=== PATIENT | female | born 1965 | race Caucasian/White ===

== ENCOUNTER 2017-06-07 08:07 | Emergency (ER) | payer MEDICARE, MEDICAID ==
[2013-10-03 15:29] VITALS: Wt 90.7 kg
[~2017-06-07 08:07] MED LIST: ACE325 PO; ALB0.5 INH; ALB18R INH; ALBU8.5H IH; ALBU8.5H12 IH; ARIP15TA9 PO; ARIP5TAB28 PO; AZIT-1 PO; AZIT1PAC21 PO; BEN100 PO; BUDE10.2; BUP75 PO; CEFU500T10; CEFU500T50 PO; CEPH500C24 PO; CIT20 PO; CLO1 PO; CLO5 PO; CLO75 PO; CLON-303 *; CLON-303 PO; COUGH SYRUP; DIC10 PO; DIHY1SPR3; DIHY1SPR3 NS; DIP25 PO; DIPH-464 PO; DIVA500T98 PO; DULO60CA51 PO; ELAVIL PO; ENA5 PO; ENO100I SC; ENO100I SUBQ; FENT-23 TD; FLUO60TA PO; FOL1 PO; FURO20TA19 PO; GABA-492 PO; HYDR2TAB42 PO; HYDR473S4 PO; KET10 PO; LEVO25TA57 PO; LEVO50TA80 PO; MED10 PO; MEP50 PO; METH4TAB66 PO; METO-734 PO; MIR15 PO; MIRT-25; MIRT45TA97 PO; MYLL PO; NEB5 PO; NOR5/325 PO; OMEP-153 PO; OMEP-218 PO; OND4 PO; ONDA4TAB PO; OXYC-489 PO; OXYC10TA67 PO; OXYC15TA79 PO; OXYC5SOL14 PO; OXYGEN INH; PERIACTIN; PRE20 PO; PRED-1 PO; PRED-314 PO; PRO25 PO; PROM-110 PO; PROM12.514 RC; RIVA20TA PO; SUMA6PEN7 SQ; TOPI-120 PO; TRA50 PO; TRAM-420 PO; TRAZ-156 PO; TRAZ50 PO; VENL75CA58 PO; VILA40TA PO; VIT-22 PO; WAR5 PO; WARF10TA29 PO; [UNRECOGNIZED DRUG - CODE] PO; gabapentin; migraine med
[2017-06-07] MEDS ORDERED: CLON-1 PO (08:18)
[2017-06-07] MEDS ORDERED: VORT10TA PO (08:28)
[2017-06-07] MEDS ORDERED: NS(*) 0.9% 1000 ML BAG 1,000 ML IV ONE ×2 (08:31)
[2017-06-07] MEDS ORDERED: ONDANSETRON 4 MG/2 ML VIAL IVP ONE ×2 (08:35→09:45)
--- NOTE | 2017-06-07 08:36 | ER Report ---
History and Physical Time Seen By MD: 08:20 Hx. of Stated Complaint: REPORTS THAT SHE HAS HAD A MIGRAINE FOR THE LAST WEEK AND THE NAUSEA/VOMITING ARE MAKING HER UNABLE TO KEEP MEDICATIONS DOWN. HPI/ROS CHIEF COMPLAINT: Abdominal pain nausea vomiting chronic headache HISTORY OF PRESENT ILLNESS: Patient is a 51-year-old female currently on an ED care plan for frequency of visits and narcotic use and abuse comes to the emergency department today with a complaint of a headache which is chronic for her she says she gets these once a month is unchanged from her baseline at the worse headache of her life and also with persistent nausea and vomiting which is Last for 5 days. Patient states she normally gets IV Phenergan on arrival couple liters of fluid and does much better. Patient states she's been able to hold her medications down. Patient states that her migraines are unchanged from her baseline patient has no additional complaints to presentation. Patient denies any abdominal pain at this time says that she's not urinating enough frequently and that she is unable to hold down even fluids. REVIEW OF SYSTEMS: Respiratory: No cough, no dyspnea. Cardiovascular: No chest pain, no palpitations. Gastrointestinal: Vomiting no abdominal pain Musculoskeletal: No back pain. Remainder of the 14 system rev: Yes Allergies: Coded Allergies: amitriptyline (Unverified Allergy, Severe, 06/07/17) pregabalin (Verified Allergy, Severe, "STROKE", 06/07/17) duloxetine (Unverified Allergy, Intermediate, 06/07/17) acetaminophen (Verified Allergy, Mild, 06/07/17) ibuprofen (Verified Allergy, Mild, 06/07/17) Uncoded Allergies: OTC MEDS (Allergy, Mild, 05/18/11) OVER THE COUNTER PAIN MEDS (Allergy, Mild, 07/06/10) Home Meds Active Scripts Tramadol Hcl (TRAMADOL HCL) 50 Mg Tablet, 50 MG PO Q6H Y for PAIN, #12 TAB 0 Refills Prov:CONNOR LU MD 11/03/16 Rivaroxaban 20 Mg (XARELTO 20 MG) 20 Mg Tablet, 20 MG PO HS, #90 TAB 2 Refills Prov:PETER PEREZ [employer], ONC 09/28/16 Promethazine Hcl (PROMETHAZINE HCL) 25 Mg Tablet, 25 MG PO Q8H Y for NAUSEA/ VOMITING, #20 TAB 0 Refills Prov:CONNOR LU MD 06/21/15 Reported Medications Vortioxetine Hydrobromide (Brintellix) 10 Mg Tablet, PO DAILY 06/07/17 Clonazepam (KLONOPIN) 1 Mg Tablet, 1 MG PO PRN, #7 TAB 06/07/17 Aripiprazole (ABILIFY) 15 Mg Tablet, 15 MG PO DAILY, #30 05/07/14 Levothyroxine Sodium (SYNTHROID) 25 Mcg Tablet, 125 MCG PO QDAY 01/13/13 Discontinued Reported Medications Albuterol Sulfate 90 Mcg/Act (PROAIR HFA 90 MCG/ACT) 8.5 Gm Hfa.aer.ad, 1-2 PUFF IH 3-4XD, INHALER 11/03/16 Clonazepam (CLONAZEPAM) 1 Mg Tablet, 3 MG PO QID, #6 TAB 11/01/14 [gabapentin] No Conflict Check 11/01/14 Oxycodone Hcl 10 Mg Tab (OXYCODONE HCL 10 MG TAB) 10 Mg Tablet, 10 MG PO QID, # 15 0 Refills 10/04/13 Fluoxetine Hcl (FLUOXETINE HCL) 60 Mg Tablet, 80 MG PO DAILY 11/09/12 Discontinued Scripts Azithromycin (ZITHROMAX) 250 Mg Tablet, 0 PO QDAY, #6 TAB 0 Refills Take 2 tablets today, then 1 tablet daily for 4 more days. Prov:CONNOR LU MD 11/03/16 Methylprednisolone (METHYLPREDNISOLONE) 4 Mg Tab.ds.pk, 4 MG PO DIRECTED, #1 PACK 0 Refills Prov:CONNOR LU MD 11/03/16 Ketorolac Tromethamine (KETOROLAC TROMETHAMINE) 10 Mg Tab, 10 MG PO Q6H Y for PAIN, #12 TAB 0 Refills Prov:CONNOR LU MD 06/21/15 Promethazine Hcl (PROMETHAZINE HCL) 25 Mg Tablet, 25 MG PO Q4H Y for NAUSEA/ VOMITING, #14 TAB Prov:RUDY DUNCAN DO 11/04/14 Furosemide (LASIX) 20 Mg Tablet, 1 TAB PO DAILY for reduction of leg edema, #30 TAB Prov:RUDY DUNCAN DO 11/01/14 Prednisone 10 Mg Tab (PREDNISONE 10 MG TAB) 10 Mg Tablet, 10 MG PO QDAY Y for reduction of lung inflammation, #9 2 tabs daily for 3 days 1 tab daily for 3 days Prov:RUDY DUNCAN DO 11/01/14 Cephalexin Monohydrate (CEPHALEXIN) 500 Mg Cap, 500 MG PO TID for infection, # 30 CAP TAKE 1 CAPSULE BY MOUTH EVERY SIX HOURS Prov:RUDY DUNCAN DO 11/01/14 Ketorolac Tromethamine (KETOROLAC TROMETHAMINE) 10 Mg Tab, 10 MG PO Q6H Y for PAIN, #12 TAB 0 Refills Prov:CONNOR LU MD 06/13/14 Reviewed Nurses Notes: Yes Old Medical Records Reviewed: Yes Hx Smoking: No Smoking Status: Never Smoker, Former Smoker Exposure to Second Hand Smoke?: No Hx Substance Use Disorder: No Hx Alcohol Use: No Constitutional Vital Sign - Last 24 Hours 06/07/17 06/07/17 06/07/17 06/07/17 08:15 08:30 08:47 09:00 Temp 98.9 Pulse 75 69 65 Resp 18 B/P (MAP) 139/90 124/76 (92) 118/66 (83) Pulse Ox 91 88 96 O2 Delivery Room Air O2 Flow Rate 2.0 06/07/17 09:30 Pulse 62 B/P (MAP) 116/68 (84) Pulse Ox 99 Physical Exam General Appearance: [The patient is alert, has no immediate need for airway protection and no current signs of toxicity.] [ ] Eyes: Pupils equal and round no injection. Respiratory: Chest is non tender, lungs are clear to auscultation. Cardiac: regular rate and rhythm [ ] Gastrointestinal: Abdomen is soft and non tender, no masses, bowel sounds normal. Musculoskeletal: Neck: Neck is supple and non tender. Extremities have full range of motion and are non tender. Skin: No rashes or lesions. [ ] DIFFERENTIAL DIAGNOSIS: After history and physical exam differential diagnosis was considered for vomiting chronic cyclical vomiting dehydration chronic migraine Medical Decision Making Data Points Result Diagram: 06/07/17 0835 06/07/17 0835 Laboratory Hematology Test 06/07/17 08:13 06/07/17 08:35 Urine Color Straw Urine Clarity Clear Urine pH 5.0 pH (4.8-9.5) Urine Specific [place] 1.004 Urine Protein Negative mg/dL (NEGATIVE) Urine Glucose (UA) Negative mg/dL (NEGATIVE) Urine Ketones Negative mg/dL (NEGATIVE) Urine Blood Negative (NEGATIVE) Urine Nitrite Negative (NEGATIVE) Urine Bilirubin Negative (NEGATIVE) Urine Urobilinogen Negative mg/dL (0.2-1.9) Urine Leukocyte Esterase Negative (NEGATIVE) Urine RBC <1 /HPF (0-2/HPF) Urine WBC 1 /HPF (0-5/HPF) Urine Squamous Epithelial Cells Many /LPF (</=FEW) Urine Bacteria Negative /HPF (NONE-FEW) Urine Mucus None /HPF (NONE-FEW) Red Blood Count 5.19 M/uL (4.17-5.56) Mean Corpuscular Volume 85.1 fL (80.0-96.0) Mean Corpuscular Hemoglobin 29.1 pg (26.0-33.0) Mean Corpuscular Hemoglobin Concent 34.2 g/dL (32.0-36.0) Red Cell Distribution Width 14.2 % (11.5-14.5) Mean Platelet Volume 9.2 fL (7.2-11.1) Neutrophils (%) (Auto) 69.7 % (39.4-72.5) Lymphocytes (%) (Auto) 22.7 % (17.6-49.6) Monocytes (%) (Auto) 6.3 % (4.1-12.4) Eosinophils (%) (Auto) 0.8 % (0.4-6.7) Basophils (%) (Auto) 0.5 % (0.3-1.4) Nucleated RBC Relative Count (auto) 0.0 /100WBC Neutrophils # (Auto) 4.1 K/uL (2.0-7.4) Lymphocytes # (Auto) 1.3 K/uL (1.3-3.6) Monocytes # (Auto) 0.4 K/uL (0.3-1.0) Eosinophils # (Auto) 0.0 K/uL (0.0-0.5) Basophils # (Auto) 0.0 K/uL (0.0-0.1) Nucleated RBC Absolute Count (auto) 0.00 K/uL Sodium Level 146 mmol/L (137-145) Potassium Level 3.5 mmol/L (3.5-5.0) Chloride Level 105 mmol/L (98-107) Carbon Dioxide Level 26 mmol/L (22-31) Blood Urea Nitrogen 10 mg/dl (7-18) Creatinine 1.10 mg/dl (0.52-1.04) Glomerular Filtration Rate Calc 52.6 Random Glucose 110 mg/dl (75-110) Calcium Level 9.6 mg/dl (8.4-10.2) Total Bilirubin 0.6 mg/dl (0.2-1.3) Aspartate Amino Transf (AST/SGOT) 18 U/L (0-35) Alanine Aminotransferase (ALT/SGPT) 23 U/L (0-56) Alkaline Phosphatase 67 U/L (0-126) Total Protein 7.2 gm/dl (6.3-8.2) Albumin 4.3 g/dl (3.5-5.0) Lipase 152 U/L (23-300) Chemistry Test 06/07/17 08:13 06/07/17 08:35 Urine Color Straw Urine Clarity Clear Urine pH 5.0 pH (4.8-9.5) Urine Specific [place] 1.004 Urine Protein Negative mg/dL (NEGATIVE) Urine Glucose (UA) Negative mg/dL (NEGATIVE) Urine Ketones Negative mg/dL (NEGATIVE) Urine Blood Negative (NEGATIVE) Urine Nitrite Negative (NEGATIVE) Urine Bilirubin Negative (NEGATIVE) Urine Urobilinogen Negative mg/dL (0.2-1.9) Urine Leukocyte Esterase Negative (NEGATIVE) Urine RBC <1 /HPF (0-2/HPF) Urine WBC 1 /HPF (0-5/HPF) Urine Squamous Epithelial Cells Many /LPF (</=FEW) Urine Bacteria Negative /HPF (NONE-FEW) Urine Mucus None /HPF (NONE-FEW) White Blood Count 5.9 k/uL (4.5-11.0) Red Blood Count 5.19 M/uL (4.17-5.56) Hemoglobin 15.1 g/dL (12.0-16.0) Hematocrit 44.2 % (34.0-47.0) Mean Corpuscular Volume 85.1 fL (80.0-96.0) Mean Corpuscular Hemoglobin 29.1 pg (26.0-33.0) Mean Corpuscular Hemoglobin Concent 34.2 g/dL (32.0-36.0) Red Cell Distribution Width 14.2 % (11.5-14.5) Platelet Count 160 K/uL (150-450) Mean Platelet Volume 9.2 fL (7.2-11.1) Neutrophils (%) (Auto) 69.7 % (39.4-72.5) Lymphocytes (%) (Auto) 22.7 % (17.6-49.6) Monocytes (%) (Auto) 6.3 % (4.1-12.4) Eosinophils (%) (Auto) 0.8 % (0.4-6.7) Basophils (%) (Auto) 0.5 % (0.3-1.4) Nucleated RBC Relative Count (auto) 0.0 /100WBC Neutrophils # (Auto) 4.1 K/uL (2.0-7.4) Lymphocytes # (Auto) 1.3 K/uL (1.3-3.6) Monocytes # (Auto) 0.4 K/uL (0.3-1.0) Eosinophils # (Auto) 0.0 K/uL (0.0-0.5) Basophils # (Auto) 0.0 K/uL (0.0-0.1) Nucleated RBC Absolute Count (auto) 0.00 K/uL Glomerular Filtration Rate Calc 52.6 Calcium Level 9.6 mg/dl (8.4-10.2) Total Bilirubin 0.6 mg/dl (0.2-1.3) Aspartate Amino Transf (AST/SGOT) 18 U/L (0-35) Alanine Aminotransferase (ALT/SGPT) 23 U/L (0-56) Alkaline Phosphatase 67 U/L (0-126) Total Protein 7.2 gm/dl (6.3-8.2) Albumin 4.3 g/dl (3.5-5.0) Lipase 152 U/L (23-300) Urinalysis Test 06/07/17 08:13 Urine Color Straw Urine Clarity Clear Urine pH 5.0 pH (4.8-9.5) Urine Specific [place] 1.004 Urine Protein Negative mg/dL (NEGATIVE) Urine Glucose (UA) Negative mg/dL (NEGATIVE) Urine Ketones Negative mg/dL (NEGATIVE) Urine Blood Negative (NEGATIVE) Urine Nitrite Negative (NEGATIVE) Urine Bilirubin Negative (NEGATIVE) Urine Urobilinogen Negative mg/dL (0.2-1.9) Urine Leukocyte Esterase Negative (NEGATIVE) Urine RBC <1 /HPF (0-2/HPF) Urine WBC 1 /HPF (0-5/HPF) Urine Squamous Epithelial Cells Many /LPF (</=FEW) Urine Bacteria Negative /HPF (NONE-FEW) Urine Mucus None /HPF (NONE-FEW) ED Course/Re-evaluation ED Course ED clinical course 51-year-old female on a care plan comes here with a headache but abdominal discomfort labs are normal waiting for TSH at 2 L of fluid had 1 episode of emesis an hour prior to discharge I will advise her to follow-up with primary care Decision to Disposition Date: Jun 07, 2017 Decision to Disposition Time: 09:46 Depart Departure Latest Vital Signs Vital Signs Date Time Temp Pulse Resp B/P (MAP) Pulse Ox O2 Delivery O2 Flow Rate FiO2 06/07/17 09:30 62 116/68 (84) 99 06/07/17 08:47 2.0 06/07/17 08:15 98.9 18 Room Air Impression: Primary Impression: Nausea and vomiting in adult Condition: Improved Disposition: HOME OR SELF-CARE Referrals: KATIE REYES MD (PCP) 5 Days Patient Instructions: Acute Nausea and Vomiting (DC) KEVIN TAI MD Jun 07, 2017 08:36
[2017-06-07 08:49] LABS: PLATELET COUNT, AUTOMATED 160 K/uL (150-450)
[2017-06-07 09:30] VITALS: BP 116/68
== END 2017-06-07 09:53 | disposition home or self-care (01) ==
LOC: ER 08:08
DX: R11.2 Nausea with vomiting, unspecified (principal)
CPT/HCPCS: 81001; 83690; 84443; 85025; 96361; 96374; 99284; J2405; J7030; 82040; 82247; 82310; 82374; 82435; 82565; 82947; 84075; 84132; 84155; 84295; 84450; 84460; 84520

== ENCOUNTER 2017-07-12 10:25 | Outpatient (RCR) | payer MEDICARE, MEDICAID ==
[2013-10-03 15:29] VITALS: Wt 90.1 kg
[~2017-07-12 10:25] MED LIST changes: +CLON-1 PO; +LIDOCAINE INJ ONE; +PROPOFOL EMUL(*) 10MG/ML 20 ML 20 ML ONE; +VORT10TA PO
[2017-07-12 10:32] VITALS: BP 119/80
--- NOTE | 2017-07-12 17:44 | ONCOLOGY FOLLOW UP NOTE ---
EVENT DATE: July 12, 2017 DIAGNOSES 1. Antiphospholipid antibody syndrome. 2. Stroke at age of 43. 3. Positive antinuclear antibody in a patient with positive family history of systemic lupus. 4. 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 5. Peripheral neuropathy 6. Patent foramen ovale, status post surgical correction in December,. CHIEF COMPLAINT The patient is here today for follow up of her hypercoagulable state. HEMATOLOGY HISTORY The patient is a 52-year-old woman who had been diagnosed with a stroke in September, when she was in [place]. She was maintained on Coumadin since then with severe fluctuation of Coumadin therapeutic effect. The patient has been diagnosed at that time with patent foramen ovale and has had surgical correction in December,. The patient had thrombophilia workup done at the time in [place] and she was found to have positive phosphatidylserine antibodies IgM which was high at 54 and methylmalonic acid and succinic acid was normal. Anticardiolipin antibody was negative. Methylenetetrahydrofolate reductase mutation showed homozygous state for [id number] mutation. Factor V Leiden was negative. Prothrombin gene mutation was also negative. Antinuclear antibodies by IgG by YAEL was detected but antibody titer IgG was less than 1 to 40, within normal range. Anticardiolipin IgG was 12, while anticardiolipin IgM was high at 38. Anticardiolipin IgA was normal at 4. Lupus anticoagulant was negative. [id number] DNA and anti-Palmer antibodies came back negative. The patient currently is maintained on Xarelto 20 mg daily and since her diagnosis she did not have any further blood clotting. HISTORY OF PRESENT ILLNESS Patient is here today for followup of her hypercoagulable state. She is complaining of dry cough with shortness of breath and wheezing sometimes. Patient did not show for the last three years and she did not have any blood clotting during this period of time. PAST MEDICAL HISTORY 1. Cerebrovascular accident in 2008. 2. 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 3. Antiphospholipid antibody syndrome. 4. Peripheral neuropathy. 5. Depression. 6. Patent foramen ovale status post surgical correction, December,. 7. Hypertension. PAST SURGICAL HISTORY 1. Total hysterectomy on June 13, 2011. 2. Left oophorectomy, taken out for two masses on October 28, 2010. 3. December,, patient had surgery for patent foramen ovale. SOCIAL HISTORY The patient is single. She has one daughter. She is on disability. She denies any abuse of tobacco, alcohol or drugs. FAMILY HISTORY Her mother had lupus with renal failure. She was on dialysis. She has a paternal grandfather who had diabetes and heart disease. Maternal grandmother had a stroke. Maternal aunt had a heart attack. Brother had renal disease and daughter has renal disease. CURRENT MEDICATIONS 1. Depakote 500 mg daily. 2. Trazodone 50 mg daily. 3. Fluoxetine 60 mg daily. 4. Oxycodone p.r.n. for pain. 5. Levothyroxine 100 mcg daily. 6. Clonazepam 1 mg three times daily. 7. Oxygen at night 2.5 liter per minute. 8. Xarelto 20 mg daily. 9. Fentanyl 50 mcg every 72 hours. ALLERGIES ALL PAIN MEDICATIONS, [id number]-[id number] TYLENOL, IBUPROFEN AND ADVIL WHICH CAUSE LIVER AND KIDNEY FAILURE. REVIEW OF SYSTEMS CONSTITUTIONAL: The patient has some chills and sweating. HEENT: Ears: No tinnitus or hearing problem. Nose: She has nasal discharge. Throat: No sore throat or mouth ulcers. Eyes: No diplopia or visual changes. RESPIRATORY: Patient has dry cough with shortness of breath and wheezing. CARDIOVASCULAR: No chest pain, orthopnea, or paroxysmal nocturnal dyspnea (PND) . No edema. No palpitations. GASTROINTESTINAL: No nausea or vomiting. No diarrhea or constipation. No change in bowel movements. No heartburn or swallowing difficulties. No abdominal pain. No jaundice. No hematemesis, melena or rectal bleeding. GENITOURINARY: No hematuria or dysuria. MUSCULOSKELETAL: She is achy all over. NEUROLOGICAL: She has tingling and numbness from her peripheral neuropathy. She also has migraine headache. HEMATOLOGIC/LYMPHATIC: She has easy bruising and mucosal bleeding sometimes from the mouth on brushing her teeth. She is weak, tired and fatigued. SKIN: No skin rash or lumps. PSYCHIATRIC: No anxiety or depression PHYSICAL EXAMINATION GENERAL: Looks stable. Well-developed, well-nourished, and in no acute distress. VITAL SIGNS: Blood pressure 119/80, pulse 81 per minute, respirations 16 per minute, temperature 98.2, pulse ox 91% on room air. HEENT: Head: Atraumatic. No sinus tenderness to palpation. Eyes: No icterus or conjunctivitis. Mouth and throat: No oral thrush or mucositis. NECK: Supple. No cervical or supraclavicular lymphadenopathy. LUNGS: Clear to auscultation and percussion bilaterally. HEART: Regular rate and rhythm. No gallops, murmurs, clicks or rubs. ABDOMEN: Soft and lax. No tenderness. No hepatosplenomegaly. No masses. EXTREMITIES: No cyanosis, clubbing or edema. LYMPHATICS: No peripheral lymphadenopathy. NEUROLOGICAL: Conscious, alert and oriented times three. No focal motor or sensory deficits. PSYCHIATRIC: Mood and affect appear normal. SKIN: No skin rash, bruise or purpuric eruption. DIAGNOSTIC DATA CBC showed white count 5.9, hemoglobin 15.1, hematocrit 44.2, platelets 160, 000. Chem panel totally normal except sodium 146, creatinine 1.1, other parameters are normal. ASSESSMENT 1. Antiphospholipid antibody syndrome. The patient had positive IgM phosphatidylserine antibody in 2008. Repeat workup for antiphospholipid antibodies syndrome showed high IgM phosphatidylserine antibody at 38. The diagnosis of antiphospholipid antibody syndrome was made after having a persistent antiphospholipid antibody for over three months. She is at high risk of recurrent blood clotting, and as her initial blood clot episode was a stroke, patient is a candidate for lifelong anticoagulation. She is currently maintained on Xarelto 20 mg daily. I am planning to continue Xarelto 20 mg lifelong. Patient is followed also by her primary are, Dr. Layton. I will see her in a year with fasting homocysteine level and, and the patient was advised to report to us with any blood clot in the future. 2. Positive antinuclear antibody, but the titer was less than 1:40. Her anti- double stranded DNA antibodies and anti-smooth antibodies came back negative. 3. 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 Her homocysteine level was normal. Patient is on supplemental vitamin B12, B6 and folic acid lifelong. 4. Peripheral neuropathy. 5. Patent foramen ovale status post surgical correction December,. PLAN 1. Continue followup. 2. Patient to return in one year with fasting homocysteine level. 3. Continue Xarelto 20 mg daily. 4. Continue B12, B6 and folic acid supplements. 5. Patient to contact us for any new concerns or complaints. ZOHREH
== END 2017-07-16 08:35 | disposition home or self-care (01) ==
LOC: ONC 10:25
PROVIDERS: ATTEND Internal Medicine Hematology
DX: D68.61 Antiphospholipid syndrome (principal); Z79.01 Long term (current) use of anticoagulants; E72.12 Methylenetetrahydrofolate reductase deficiency; G62.9 Polyneuropathy, unspecified; Z79.899 Other long term (current) drug therapy; R05 Cough; R06.02 Shortness of breath; R06.2 Wheezing; R53.1 Weakness; R53.83 Other fatigue
CPT/HCPCS: 99212; J2001; J2704

== ENCOUNTER → 2017-11-22 | Outpatient (CLI) | payer MEDICARE, MEDICAID ==
[2013-10-03 15:29] VITALS: BMI 28.7
[~2017-11-22] MED LIST changes: +CLON-304 PO; -LIDOCAINE INJ ONE; -PROPOFOL EMUL(*) 10MG/ML 20 ML 20 ML ONE; -TRAZ-156 PO; +TRAZ50TA34 PO
--- NOTE | 2017-11-23 08:13 | RADIOLOGY IMAGING REPORT ---
FACILITY: [facility] PATIENT NAME: JOHN PAUL SALAMANCA : [id number] MR: [id number] V: [id number] EXAM DATE: [id number] ORDERING PHYSICIAN: KATIE REYES TECHNOLOGIST: Meka Westbrook PROCEDURE:BILATERAL DIGITAL SCREENING MAMMOGRAM WITH CAD ASSISTED INTERPRETATION & 3D TOMOSYNTHESIS COMPARISON:Prior mammograms 11/21/16, 10/07/13, 09/24/13. INDICATIONS:SCREENING IMPLANTS FINDINGS: There are bilateral subpectoral breast implants in place. There is no evidence of implant rupture or leakage. A small amount of fibroglandular tissue is seen anterior to the implants. The parenchymal pattern has remained stable allowing for difference in mammographic technique & patient positioning. There is no evidence of malignant appearing mass, malignant appearing calcifications or other secondary sign of malignancy in either breast. DIAGNOSTIC CATEGORY 2--BENIGN FINDING. RECOMMENDATIONS: ROUTINE MAMMOGRAM AND CLINICAL EVALUATION. IMPRESSION: BIRADS 2: Benign finding. No significant abnormality is seen. Dictated by: Lucia Burciaga M.D. on 11/22/2017 at 15:42 Transcribed by: NATE on 11/22/2017 at 16:05 Approved by: Lucia Burciaga M.D. on 11/23/2017 at 8:12 [facility]
== END ==
LOC: MAMO 01:16
PROVIDERS: ATTEND Family Medicine
DX: Z12.31 Encounter for screening mammogram for malignant neoplasm of breast (principal)
CPT/HCPCS: 77063; 77067

== ENCOUNTER → 2018-04-01 | Outpatient (CLI) | payer MEDICARE, MEDICAID ==
[2013-10-03 15:29] VITALS: BMI 28.7
[~2018-04-01] MED LIST changes: -CLON-304 PO; +CLON-333 PO
--- NOTE | 2018-04-02 14:44 | RADIOLOGY IMAGING REPORT ---
FACILITY: [facility] PATIENT NAME: JOHN PAUL SALAMANCA : [id number] MR: [id number] V: [id number] EXAM DATE: ORDERING PHYSICIAN: MARLEN COVARRUBIAS TECHNOLOGIST: Meka Westbrook PROCEDURE:BILATERAL DIAGNOSTIC DIGITAL MAMMOGRAM WITH CAD ASSISTED INTERPRETATION & 3D TOMOSYNTHESIS COMPARISON:None. INDICATIONS:PALPABLE BREAST LUMPS & SWELLING IN THE 12 O'CLOCK POSITION OF BOTH BREASTS. FINDINGS: There are bilateral subpectal breast implants in place. There is no evidence of implant rupture or leakage. Scattered fibroglandular densities are seen throughout both breasts. The parenchymal pattern has remained stable allowing for difference in mammographic technique & patient positioning. No mammographic or sonographic correlate is identified to account for patient's palpable lumps & swelling in the 12 o'clock position of both breasts. Therefore, clinical follow up recommended. DIAGNOSTIC CATEGORY 2--BENIGN FINDING. RECOMMENDATIONS: ROUTINE MAMMOGRAM AND CLINICAL EVALUATION. CLINICAL EVALUATION. IMPRESSION: BIRADS 2: Benign finding. No significant mammographic or sonographic abnormality is identified in either breast. Therefore, clinical follow up recommended. Dictated by: Lucia Burciaga M.D. on 04/01/2018 at 16:48 Transcribed by: TANNER on 04/02/2018 at 9:27 Approved by: Lucia Burciaga M.D. on 04/02/2018 at 14:43 [facility]
--- NOTE | 2018-04-02 14:44 | RADIOLOGY IMAGING REPORT ---
[place] [facility] [place]IENT NAME: JOHN PAUL SALAMANCA : [id number] MR: [id number] V: [id number] EXAM DATE: ORDERING PHYSICIAN: MARLEN COVARRUBIAS TECHNOLOGIST: Manny Lomax RDMS, GIANNI PROCEDURE:US BILATERAL BREAST COMPARISON:None. INDICATIONS:BREAST LUMPS 12 O'CLOCK POSITION IN BOTH BREASTS FINDINGS: Both breasts were imaged sonographically in the location of patient's area of interest. This included 12 o'clock, 12:30, 1, 2 o'clock positions in the Right breast & 9:30, 10, 10:30, 11, 11:30 & 12 o'clock positions in the Left breast. No sonographic abnormality was identified. Clinical follow up recommended for patient's palpable findings. DIAGNOSTIC CATEGORY 2--BENIGN FINDING. RECOMMENDATIONS: ROUTINE MAMMOGRAM AND CLINICAL EVALUATION. CLINICAL EVALUATION. IMPRESSION: BIRADS 2: Benign finding. No sonographic correlate identified to account for patient's palpable findings in the 12 o'clock positions of both breasts. Dictated by: Lucia Burciaga M.D. on 04/01/2018 at 16:43 Transcribed by: TANNER on 04/02/2018 at 9:40 Approved by: Lucia Burciaga M.D. on 04/02/2018 at 14:43 [facility]
== END ==
LOC: US 01:55
PROVIDERS: ATTEND Nurse Practitioner Family
DX: Z98.82 Breast implant status (principal)
CPT/HCPCS: 77062; 77066

== ENCOUNTER 2018-06-27 14:24 | Outpatient (RCR) | payer MEDICARE, MEDICAID ==
[2013-10-03 15:29] VITALS: Wt 94.1 kg
--- NOTE | 2017-08-02 13:45 | NUR ---
SW assisted pt with applying for xarelto assistance last month. The pt called today and notified SW that she received information back from [employer] that she did not qualify for assistance. She questioned if she could potentially switch to eliquis instead. SW visited with her oncologist about this and he indicated that yes, she could in fact switch to eliquis. SW notified the pt. Pt stated she did not need any at the moment but would appreciate it to be called in to her pharmacy [facility] so she could pick it up when she needed it. THANG notified Dr. Miranda's nurse of this for it to be called in.
--- NOTE | 2017-08-02 14:35 | NUR ---
SW just verified with RN who called in the script for Eliquis that it is more expensive than xarelto (nearly double). SW notified the pt of this information and the pt is going to call the pharmacy and tell them that she does not need the eliquis at this time.
[2018-06-20 08:59] VITALS: BP 113/84
[~2018-06-27 14:24] MED LIST changes: -TRAZ50TA34 PO; +TRAZ50TA52 PO
[2018-06-27 14:29] VITALS: BP 110/66
[2018-06-27] MEDS ORDERED: VITA1CAP46 PO (14:59)
[2018-06-27] MEDS ORDERED: FOLI-68 PO (14:59)
--- NOTE | 2018-06-27 17:11 | ONCOLOGY FOLLOW UP NOTE ---
EVENT DATE: June 27, 2018 DIAGNOSES 1. Antiphospholipid antibody syndrome. 2. Stroke at age of 43. 3. Positive antinuclear antibody in a patient with positive family history of systemic lupus. 4. 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 5. Peripheral neuropathy 6. Patent foramen ovale, status post surgical correction in December 2008. CHIEF COMPLAINT The patient is here today for followup of her hypercoagulable state. HEMATOLOGY HISTORY The patient is a 52-year-old woman who had been diagnosed with a stroke in September, when she was in [place]. She was maintained on Coumadin since then with severe fluctuation of Coumadin therapeutic effect. The patient had been diagnosed at that time with patent foramen ovale and has had surgical correction in December 2008. The patient had thrombophilia workup done at the time in [place], and she was found to have positive phosphatidylserine antibody IgM which was high at 54, and methylmalonic acid and succinic acid were normal. Anticardiolipin antibody was negative. Methylenetetrahydrofolate reductase mutation showed homozygous state for [id number] mutation. Factor V Leiden was negative. Prothrombin gene mutation was also negative. Antinuclear antibodies by IgG by YAEL was detected, but antibody titer IgG was less than 1:40, within normal range. Anticardiolipin IgG was 12, while anticardiolipin IgM was high at 38. Anticardiolipin IgA was normal at 4. Lupus anticoagulant was negative. Llso-rsbaij-ylsoeuit DNA and anti-Palmer antibodies came back negative. The patient currently is maintained on Xarelto 20 mg daily, and since her diagnosis, she has not had any further blood clotting. HISTORY OF PRESENT ILLNESS Patient is here today for followup of her hypercoagulable state. She is doing fine currently apart from having some neuropathy in her feet with tingling and numbness. Patient denies any other complaints. As per patient, she has not taken the folic acid and vitamin B complex lately. PAST MEDICAL HISTORY 1. Cerebrovascular accident in 2008. 2. 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 3. Antiphospholipid antibody syndrome. 4. Peripheral neuropathy. 5. Depression. 6. Patent foramen ovale, status post surgical correction December 2008. 7. Hypertension. PAST SURGICAL HISTORY 1. Total hysterectomy on June 13, 2011. 2. Left oophorectomy, taken out for two masses on October 28, 2010. 3. December 2008, patient had surgery for patent foramen ovale. SOCIAL HISTORY The patient is single. She has one daughter. She is on disability. She denies any abuse of tobacco, alcohol, or drugs. FAMILY HISTORY Her mother had lupus with renal failure. She was on dialysis. She has a paternal grandfather who had diabetes and heart disease. Maternal grandmother had a stroke. Maternal aunt had a heart attack. Brother had renal disease, and daughter has renal disease. CURRENT MEDICATIONS 1. Depakote 500 mg daily. 2. Trazodone 50 mg daily. 3. Fluoxetine 60 mg daily. 4. Oxycodone p.r.n. for pain. 5. Levothyroxine 100 mcg daily. 6. Clonazepam 1 mg three times daily. 7. Oxygen at night 2.5L per minute. 8. Xarelto 20 mg daily. 9. Fentanyl 50 mcg every 72 hours. ALLERGIES ALL PAIN MEDICATIONS, [id number] TYLENOL, IBUPROFEN, and ADVIL, which cause kidney and liver failure. REVIEW OF SYSTEMS CONSTITUTIONAL: No appetite or weight change. No fever, chills, or sweating. No recent infection. HEENT: Ears: No tinnitus or hearing problem. Nose: No nasal discharge or epistaxis. Throat: No sore throat or mouth ulcers. Eyes: No diplopia or visual changes. RESPIRATORY: No shortness of breath. No cough, expectoration, or hemoptysis. CARDIOVASCULAR: No chest pain, orthopnea, or paroxysmal nocturnal dyspnea (PND). No edema. No palpitations. GASTROINTESTINAL: No nausea or vomiting. No diarrhea or constipation. No change in bowel movements. No heartburn or swallowing difficulties. No abdominal pain. No jaundice. No hematemesis, melena, or rectal bleeding. GENITOURINARY: No hematuria or dysuria. MUSCULOSKELETAL: No pain in the muscles, joints, or bones. NEUROLOGIC: Patient has tingling and numbness in her feet. No headaches or convulsions. HEMATOLOGIC/LYMPHATIC: No bleeding or easy bruising. No weakness or fatigue. No enlarged lymph nodes. SKIN: No skin rash or lumps. PSYCHIATRIC: No anxiety or depression. PHYSICAL EXAMINATION GENERAL: Looks stable. Well developed, well nourished, and in no acute distress. VITAL SIGNS: Blood pressure 110/66, pulse 70 per minute, respirations 16 per minute, temperature 98.2, pulse ox 92% on room air. HEENT: Head: Atraumatic. No sinus tenderness to palpation. Eyes: No icterus or conjunctivitis. Mouth and Throat: No oral thrush or mucositis. NECK: Supple. No cervical or supraclavicular lymphadenopathy. LUNGS: Clear to auscultation and percussion bilaterally. HEART: Regular rate and rhythm. No gallops, murmurs, clicks, or rubs. ABDOMEN: Soft and lax. No tenderness. No hepatosplenomegaly. No masses. EXTREMITIES: No cyanosis, clubbing, or edema. LYMPHATICS: No peripheral lymphadenopathy. NEUROLOGIC: Conscious, alert, and oriented times three. No focal motor or sensory deficits. PSYCHIATRIC: Mood and affect appear normal. SKIN: No skin rash, bruise, or purpuric eruption. DIAGNOSTIC DATA CBC showed white count 5.9, hemoglobin 15.1, hematocrit 44.2, platelets 160,000. Chem panel totally normal except creatinine 1.1. Homocysteine level is high at 14. ASSESSMENT 1. Antiphospholipid antibody syndrome. Patient had positive IgM phosphatidylserine antibody in 2008. Repeat workup for antiphospholipid antibody syndrome showed high IgM phosphatidylserine antibody at 38. Diagnosis of antiphospholipid antibody syndrome was made after having persistent antiphospholipid antibody for over three months. Patient is high risk for blood clotting, and as her initial blood clot was a stroke, patient is a candidate for lifelong anticoagulation. Currently, she is maintained on Xarelto 20 mg daily, and I am planning to continue Xarelto for the rest of her life. Her primary care doctor is Dr. Layton. I am planning to see her again in a year with a homocysteine level at that time. 2. Positive antinuclear antibody, but the titer was less than 1:40. Her anti- double stranded DNA antibodies and anti-smooth antibodies came back negative. 3. 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 Her homocysteine level last time I saw her was normal, but today is high at 14, and the patient was advised to continue to supplement with B12, B6, and folic acid lifelong. 4. Peripheral neuropathy. 5. Patent foramen ovale, status post surgical correction December 2008. PLAN 1. Continue followup. 2. Continue Xarelto 20 mg daily lifelong. 3. Continue folic acid 1 mg daily. 4. Continue vitamin B complex one tablet twice daily. 5. Patient to return in six months with fasting homocysteine level. 6. Patient to contact us for any new concerns or complaints. ZOHREH
== END 2018-07-29 12:59 | disposition home or self-care (01) ==
LOC: ONC 14:24
PROVIDERS: ATTEND Internal Medicine Hematology
DX: D68.61 Antiphospholipid syndrome (principal); E72.12 Methylenetetrahydrofolate reductase deficiency; G62.9 Polyneuropathy, unspecified; Z79.899 Other long term (current) drug therapy; Z86.73 Personal history of transient ischemic attack (TIA), and cerebral infarction without residual deficits
CPT/HCPCS: 36415; 83090; G0463; 99212